=== PATIENT | female | born 1990 | race Caucasian/White ===

== ENCOUNTER 2017-08-19 15:43 | Inpatient (IN) | payer MEDICAID, OTHER ==
[~2017-08-19] VITALS: Ht 160 cm; Wt 81.6 kg
[2017-08-19] MEDS ORDERED: ONDANSETRON HCL 4 MG/2 ML VIAL ONE ×2 (16:24→18:31)
[2017-08-19] MEDS ORDERED: SODIUM CHLORIDE 0.9% 1000ML 1,000 ML IV ONE (16:25)
[2017-08-19] MEDS ORDERED: DICYCLOMINE HCL 10 MG/ML 2ML AMP IM ONE (16:25)
[2017-08-19 16:26] LABS: BASOPHILS % (AUTO) 0.4 % (0.0-5.0); EOSINOPHILS % (AUTO) 0.2 % (0.0-8.0); HEMATOCRIT 32.7 % (36-48); LYMPHOCYTES % (AUTO) 13.3 % (21.0-51.0); MEAN CORPUSCULAR HEMOGLOBIN 19.4 pg (27.0-33.0); MEAN CORPUSCULAR HGB CONC 31.4 g/dL (32.0-36.0); MEAN CORPUSCULAR VOLUME 61.8 fL (79-99); MONOCYTES % (AUTO) 5.8 % (3.0-13.0); NEUTROPHILS % (AUTO) 80.3 % (40.0-77.0); PLATELET COUNT (AUTO) 321 K/uL (130-400); RED CELL DISTRIBUTION WIDTH 17.3 % (11.0-15.5); WHITE BLOOD COUNT (AUTO) 8.2 K/uL (4.8-10.8)
[2017-08-19 16:27] LABS: APPEARANCE,URINE SL CLOUDY (CLEAR); BILIRUBIN,URINE MODERATE (NEGATIVE); COLOR,URINE YELLOW (YELLOW); GLUCOSE, URINE (UA) NEGATIVE (NEGATIVE); KETONES,URINE 15 mg/dL (NEGATIVE); LEUKOCYTE ESTERASE ,URINE TRACE (NEGATIVE); NITRATE,URINE NEGATIVE (NEGATIVE); OCCULT BLOOD,URINE NEGATIVE (NEGATIVE); PROTEIN,URINE NEGATIVE (NEGATIVE); UROBILINOGEN,URINE 0.2 mg/dL (0.2-1.0)
[2017-08-19 16:39] LABS: CREATININE 0.7 mg/dL (0.5-1.5); POTASSIUM 3.5 mmol/L (3.5-5.1)
[2017-08-19 16:49] LABS: ALBUMIN 4.1 g/dL (3.5-5.0); BILIRUBIN,TOTAL 2.5 mg/dL (0.2-1.0); TOTAL PROTEIN, SERUM 8.4 g/dL (6.0-8.3)
[2017-08-19 17:02] LABS: BACTERIA,URINE Few /HPF (None Seen); RBC,URINE 0-1 /HPF (0-1); SQUAMOUS EPITHELIAL CELL,UR Moderate /LPF (0-2)
[2017-08-19 17:03] LABS: MUCUS,URINE Few LPF (None Seen)
[2017-08-19] MEDS ORDERED: MORPHINE SULFATE 8 MG/ML VIAL ONE (18:32)
[2017-08-19 23:35] VITALS: BP 110/58
[2017-08-19] MEDS ORDERED: PREN1TAB89 PO (23:44)
[2017-08-20] MEDS: SODIUM CHLORIDE 0.9% 1000ML 1,000 ML IV SCH ×3 (00:06→23:27)
[2017-08-20 03:27] VITALS: BP 91/54
[2017-08-20] MEDS: MORPHINE SULFATE 2 MG/ML 1ML SYG IV PRN (04:54)
[2017-08-20 05:39] LABS: BASOPHILS % (AUTO) 0.5 % (0.0-5.0); EOSINOPHILS % (AUTO) 0.4 % (0.0-8.0); HEMATOCRIT 28.6 % (36-48); LYMPHOCYTES % (AUTO) 19.5 % (21.0-51.0); MEAN CORPUSCULAR HEMOGLOBIN 19.4 pg (27.0-33.0); MEAN CORPUSCULAR HGB CONC 31.5 g/dL (32.0-36.0); MEAN CORPUSCULAR VOLUME 61.7 fL (79-99); MONOCYTES % (AUTO) 7.8 % (3.0-13.0); NEUTROPHILS % (AUTO) 71.8 % (40.0-77.0); PLATELET COUNT (AUTO) 278 K/uL (130-400); RED BLOOD CELL COUNT(AUTO) 4.63 MIL/uL (4.00-5.50); RED CELL DISTRIBUTION WIDTH 17.5 % (11.0-15.5); WHITE BLOOD COUNT (AUTO) 7.1 K/uL (4.8-10.8)
[2017-08-20 05:45] LABS: CREATININE 0.7 mg/dL (0.5-1.5); POTASSIUM 3.5 mmol/L (3.5-5.1)
[2017-08-20 07:42] VITALS: BP 97/53
[2017-08-20] MEDS: FAMOTIDINE 20MG TAB 20 MG TAB PO SCH (08:49)
[2017-08-20 11:40] VITALS: BP 98/59
[2017-08-20 15:49] VITALS: BP 102/59
[2017-08-20 19:34] VITALS: BP 111/65
[2017-08-20] MEDS ORDERED: ACETAMINOPHEN 650 MG SUPPOSITORY RC PRN (20:45)
[2017-08-20] MEDS ORDERED: DiphenhydrAMINE HCL 50 MG/ML VIAL IV PRN (20:45)
[2017-08-20] MEDS ORDERED: ACETAMINOPHEN 325 MG TAB PO ONE (20:45)
[2017-08-20 23:23] VITALS: BP 109/65
[2017-08-21 03:17] VITALS: BP 102/60
[2017-08-21 05:54] LABS: HEMATOCRIT 28.4 % (36-48); MEAN CORPUSCULAR HEMOGLOBIN 20.1 pg (27.0-33.0); MEAN CORPUSCULAR HGB CONC 32.4 g/dL (32.0-36.0); MEAN CORPUSCULAR VOLUME 62.1 fL (79-99); PLATELET COUNT (AUTO) 294 K/uL (130-400); RED BLOOD CELL COUNT(AUTO) 4.57 MIL/uL (4.00-5.50); RED CELL DISTRIBUTION WIDTH 17.7 % (11.0-15.5); WHITE BLOOD COUNT (AUTO) 6.4 K/uL (4.8-10.8)
[2017-08-21 06:05] LABS: CREATININE 0.6 mg/dL (0.5-1.5); POTASSIUM 3.9 mmol/L (3.5-5.1)
[2017-08-21 07:59] VITALS: BP 98/50
[2017-08-21] MEDS: MORPHINE SULFATE 2 MG/ML 1ML SYG IV PRN (08:13)
[2017-08-21] MEDS: FAMOTIDINE 20MG TAB 20 MG TAB PO SCH (09:04)
[2017-08-21] MEDS: SODIUM CHLORIDE 0.9% 1000ML 1,000 ML IV SCH ×2 (10:21→13:58)
[2017-08-21 12:07] VITALS: BP 125/73
[2017-08-21 15:57] VITALS: BP 124/72
== END 2017-08-21 16:45 | disposition home or self-care (01) | DRG 781 ==
LOC: EDH 15:43 → EDHIP 15:44 → WSH 23:25
PROVIDERS: ADMIT Family Medicine; ATTEND Family Medicine
DX: O26.611 Liver and biliary tract disorders in pregnancy, first trimester (principal); K80.20 Calculus of gallbladder without cholecystitis without obstruction; O34.29 Maternal care due to uterine scar from other previous surgery; Z3A.01 Less than 8 weeks gestation of pregnancy; Z87.81 Personal history of (healed) traumatic fracture
CPT/HCPCS: 36415; 74181; 76705; 76817; 80048; 80053; 81001; 82150; 83690; 84702; 85025; 85027; J0500; J2270; J2405; J7030; J7120

== ENCOUNTER 2017-08-31 08:14 | Emergency (ER) | payer MEDICAID, OTHER ==
[~2017-08-31 08:14] MED LIST: PREN1TAB89 PO
[2017-08-31 08:48] LABS: APPEARANCE,URINE CLEAR (CLEAR); BILIRUBIN,URINE NEGATIVE (NEGATIVE); COLOR,URINE YELLOW (YELLOW); GLUCOSE, URINE (UA) NEGATIVE (NEGATIVE); KETONES,URINE NEGATIVE (NEGATIVE); LEUKOCYTE ESTERASE ,URINE NEGATIVE (NEGATIVE); NITRATE,URINE NEGATIVE (NEGATIVE); OCCULT BLOOD,URINE LARGE (NEGATIVE); PH,URINE 7.5 (5.0-8.0); PROTEIN,URINE NEGATIVE (NEGATIVE); UROBILINOGEN,URINE 0.2 mg/dL (0.2-1.0)
[2017-08-31 08:54] LABS: BACTERIA,URINE Rare /HPF (None Seen); WBC,URINE None Seen /HPF (0-1); YEAST,URINE BUDDING Few /HPF (None Seen)
== END 2017-08-31 12:48 | disposition home or self-care (01) ==
LOC: EDH 08:14
DX: O20.9 Hemorrhage in early pregnancy, unspecified (principal); Z3A.01 Less than 8 weeks gestation of pregnancy
CPT/HCPCS: 36415; 76801; 81001; 84702

== ENCOUNTER 2018-04-21 10:30 | Inpatient (IN) | payer MEDICAID ==
[~2018-04-21] VITALS: Ht 160 cm; Wt 86.6 kg
[2018-04-21 11:42] LABS: HEMATOCRIT 30.2 % (36-48); MEAN CORPUSCULAR HEMOGLOBIN 20.4 pg (27.0-33.0); MEAN CORPUSCULAR HGB CONC 31.9 g/dL (32.0-36.0); MEAN CORPUSCULAR VOLUME 63.9 fL (79-99); PLATELET COUNT (AUTO) 251 K/uL (130-400); RED BLOOD CELL COUNT(AUTO) 4.72 MIL/uL (4.00-5.50); RED CELL DISTRIBUTION WIDTH 16.5 % (11.0-15.5); WHITE BLOOD COUNT (AUTO) 12.9 K/uL (4.8-10.8)
[2018-04-22] VITALS (17 sets, daily range): BP systolic 96–118; BP diastolic 53–69
[2018-04-22] MEDS ORDERED: CEFAZOLIN SODIUM 1 GM VIAL IVP PRN (05:30)
[2018-04-22] MEDS ORDERED: CEFAZOLIN SODIUM 1 GM VIAL ONE (05:42)
[2018-04-22] MEDS ORDERED: DURAMORPH PF1 MG/ML 10ML AMP IV ONE (06:43)
[2018-04-22] MEDS ORDERED: DEXAMETHASONE SOD PHOSPHATE 10MG/ML 1ML VIAL ONE (07:12)
[2018-04-22] MEDS ORDERED: ONDANSETRON HCL 4 MG/2 ML VIAL ONE (07:12)
[2018-04-22 07:27] LABS: HEPATITIS Bs ANTIGEN SCREEN P Negative (Negative)
[2018-04-22] MEDS ORDERED: SODIUM CHLORIDE 0.9% 10 ML VIAL IVP PRN (09:30)
[2018-04-22] MEDS ORDERED: PROMETHAZINE HCL 25 MG/ML 1ML AMPULE IM PRN ×2 (09:30→12:00)
[2018-04-22] MEDS ORDERED: MEPERIDINE-PF 75 MG/ML SYG IM PRN (09:30)
[2018-04-22] MEDS ORDERED: OXYTOCIN 10 USP UNITS/ML ONE (09:32)
[2018-04-22] MEDS ORDERED: ONDANSETRON HCL MDV 20ML 2 MG/ML VIAL ONE (09:55)
[2018-04-22] MEDS ORDERED: MORPHINE SULFATE 2 MG/ML 1ML SYG IVP PRN (12:00)
[2018-04-22] MEDS ORDERED: METOCLOPRAMIDE 10 MG/2 ML VIAL IVP PRN (12:00)
[2018-04-22] MEDS ORDERED: DiphenhydrAMINE HCL 50 MG/ML VIAL IVP PRN (12:00)
[2018-04-22] MEDS ORDERED: EPHEDRINE SULFATE 50 MG/ML AMPULE IVP PRN (12:00)
[2018-04-22] MEDS ORDERED: ONDANSETRON HCL 4 MG/2 ML VIAL IVP PRN ×2 (12:00)
[2018-04-22] MEDS ORDERED: NALOXONE HCL 0.4 MG/1 ML ML IVP PRN ×2 (12:00)
[2018-04-22] MEDS ORDERED: ONDANSETRON HCL 4 MG/2 ML 8 MG in SODIUM CHLORIDE 0.9% 50 ML IVP NR (12:00)
[2018-04-22] MEDS ORDERED: HYDROCODONE/ACETAMINOPHEN 5/325 MG TAB PO PRN (12:00)
[2018-04-22] MEDS: HYDROCODONE/ACETAMINOPHEN 5/325 MG TAB PO PRN ×2 (16:07→21:08)
[2018-04-22] MEDS: DEXTROSE 5 %-0.45 % NACL 1,000 ML IV PRN ×2 (16:08→21:08)
[2018-04-23 00:22] VITALS: BP 91/57
[2018-04-23] MEDS: DEXTROSE 5 %-0.45 % NACL 1,000 ML IV PRN (03:43)
[2018-04-23] MEDS: HYDROCODONE/ACETAMINOPHEN 5/325 MG TAB PO PRN ×2 (03:53→19:01)
[2018-04-23 04:55] VITALS: BP 97/61
[2018-04-23] MEDS ORDERED: LANOLIN 30GM OINTMENT TP PRN (05:00)
[2018-04-23] MEDS ORDERED: ACETAMINOPHEN EXTRA STRENGTH 500 MG TABLET PO PRN (05:00)
[2018-04-23] MEDS ORDERED: HYDROCODONE/ACETAMINOPHEN 5/325 MG TAB PO PRN (05:00)
[2018-04-23] MEDS ORDERED: BISACODYL 10 MG SUPP.RECT RC PRN (05:00)
[2018-04-23 05:28] LABS: HEMATOCRIT 25.6 % (36-48); MEAN CORPUSCULAR HEMOGLOBIN 20.6 pg (27.0-33.0); MEAN CORPUSCULAR VOLUME 64.3 fL (79-99); PLATELET COUNT (AUTO) 195 K/uL (130-400); RED BLOOD CELL COUNT(AUTO) 3.99 MIL/uL (4.00-5.50); RED CELL DISTRIBUTION WIDTH 16.9 % (11.0-15.5); WHITE BLOOD COUNT (AUTO) 9.2 K/uL (4.8-10.8)
[2018-04-23 07:36] VITALS: BP 97/65
[2018-04-23] MEDS: DOCUSATE SODIUM 100 MG CAP PO SCH ×2 (08:54→21:02)
[2018-04-23] MEDS: SIMETHICONE 80 MG TAB.CHEW PO PRN ×2 (08:54→17:19)
[2018-04-23] MEDS: IBUPROFEN 600 MG TABLET PO PRN ×2 (08:55→17:19)
[2018-04-23] MEDS: ACETAMINOPHEN-CODEINE 300/30MG TAB PO PRN (09:58)
[2018-04-23 11:33] VITALS: BP 107/71
[2018-04-23 15:52] VITALS: BP 100/59
[2018-04-23 20:41] VITALS: BP 99/50
[2018-04-24 01:34] VITALS: BP 105/72
[2018-04-24] MEDS: ACETAMINOPHEN-CODEINE 300/30MG TAB PO PRN (03:26)
[2018-04-24 05:08] VITALS: BP 118/76
[2018-04-24 07:42] VITALS: BP 119/72
[2018-04-24] MEDS: DOCUSATE SODIUM 100 MG CAP PO SCH (08:40)
[2018-04-24] MEDS: SIMETHICONE 80 MG TAB.CHEW PO PRN (08:40)
[2018-04-24] MEDS: IBUPROFEN 600 MG TABLET PO PRN (08:44)
[2018-04-24 11:29] VITALS: BP 104/65
== END 2018-04-24 13:25 | disposition home or self-care (01) | DRG 540 ==
LOC: LDH 04-22 05:31 → WSH 04-22 08:55
PROVIDERS: ADMIT Obstetrics & Gynecology; ATTEND Obstetrics & Gynecology
PROC: 10D00Z1 Extraction of Products of Conception, Low, Open Approach (ICD-10-PCS; principal; 2018-04-22 07:00)
DX: O34.211 Maternal care for low transverse scar from previous cesarean delivery (principal); Z37.0 Single live birth; Z3A.39 39 weeks gestation of pregnancy; Z83.3 Family history of diabetes mellitus; Z80.1 Family history of malignant neoplasm of trachea, bronchus and lung; Z82.49 Family history of ischemic heart disease and other diseases of the circulatory system
CPT/HCPCS: 36415; 59510; 85027; 86592; 86850; 86900; 86901; 87340; A4344; A4450; A4606; J0690; J1100; J2274; J2405; J2590; J7120

== ENCOUNTER 2018-12-14 18:51 | Emergency (ER) | payer MEDICAID, OTHER ==
[2018-12-14 19:26] LABS: APPEARANCE,URINE Clear (CLEAR); BILIRUBIN,URINE Negative (NEGATIVE); COLOR,URINE Yellow (YELLOW); GLUCOSE, URINE (UA) Negative (NEGATIVE); KETONES,URINE 15 mg/dL (NEGATIVE); LEUKOCYTE ESTERASE ,URINE Negative (NEGATIVE); NITRATE,URINE Negative (NEGATIVE); OCCULT BLOOD,URINE Negative (NEGATIVE); PROTEIN,URINE Negative (NEGATIVE)
[2018-12-14 19:28] LABS: HCG,QUAL RESULT NEGATIVE (NEGATIVE)
[2018-12-14 19:31] LABS: CREATININE 0.7 mg/dL (0.5-1.5); POTASSIUM 3.9 mmol/L (3.5-5.1)
[2018-12-14 19:33] LABS: BASOPHILS % (AUTO) 0.4 % (0.0-5.0); EOSINOPHILS % (AUTO) 0.6 % (0.0-8.0); HEMATOCRIT 40.9 % (36-48); LYMPHOCYTES % (AUTO) 11.9 % (21.0-51.0); MEAN CORPUSCULAR HEMOGLOBIN 25.4 pg (27.0-33.0); MEAN CORPUSCULAR HGB CONC 33.2 g/dL (32.0-36.0); MEAN CORPUSCULAR VOLUME 76.4 fL (79-99); MONOCYTES % (AUTO) 4.6 % (3.0-13.0); NEUTROPHILS % (AUTO) 82.5 % (40.0-77.0); PLATELET COUNT (AUTO) 255 K/uL (130-400); RED BLOOD CELL COUNT(AUTO) 5.35 MIL/uL (4.00-5.50); RED CELL DISTRIBUTION WIDTH 13.7 % (11.0-15.5); WHITE BLOOD COUNT (AUTO) 10.8 K/uL (4.8-10.8)
[2018-12-14 19:45] LABS: ALBUMIN 4.4 g/dL (3.5-5.0); BILIRUBIN,TOTAL 0.5 mg/dL (0.2-1.0); THYROID STIMULATING HORMONE 6.92 uIU/mL (0.36-3.74); TOTAL PROTEIN, SERUM 8.5 g/dL (6.0-8.3)
[2018-12-14] MEDS ORDERED: SODIUM CHLORIDE 0.9% 1000ML 1,000 ML IV ONE (20:27)
[2018-12-14] MEDS ORDERED: ONDANSETRON HCL 4 MG/2 ML VIAL ONE (21:03)
== END 2018-12-14 22:42 | disposition home or self-care (01) ==
LOC: EDH 18:51
DX: E86.0 Dehydration (principal); R11.2 Nausea with vomiting, unspecified; R19.7 Diarrhea, unspecified; Z98.890 Other specified postprocedural states
CPT/HCPCS: 36415; 80053; 81003; 81025; 82550; 84443; 84484; 85025; 93005; 96361; 96374; 99285; J2405; J7030

== ENCOUNTER 2020-04-01 12:43 | Emergency (ER) | payer SELFPAY ==
[2020-04-01 13:04] LABS: BASOPHILS % (AUTO) 0.6 % (0.0-5.0); EOSINOPHILS % (AUTO) 0.3 % (0.0-8.0); HEMATOCRIT 37.2 % (36-48); LYMPHOCYTES % (AUTO) 15.4 % (21.0-51.0); MEAN CORPUSCULAR HEMOGLOBIN 23.2 pg (27.0-33.0); MEAN CORPUSCULAR HGB CONC 32.3 g/dL (32.0-36.0); MEAN CORPUSCULAR VOLUME 71.8 fL (79-99); MONOCYTES % (AUTO) 5.5 % (3.0-13.0); PLATELET COUNT (AUTO) 275 K/uL (130-400); RED BLOOD CELL COUNT(AUTO) 5.18 MIL/uL (4.00-5.50)
[2020-04-01 13:15] LABS: CREATININE 0.7 mg/dL (0.5-1.5); POTASSIUM 3.8 mmol/L (3.5-5.1)
[2020-04-01 13:19] LABS: ALBUMIN 4.4 g/dL (3.5-5.0); BILIRUBIN,TOTAL 0.4 mg/dL (0.2-1.0); TOTAL PROTEIN, SERUM 8.4 g/dL (6.0-8.3)
[2020-04-01] MEDS ORDERED: ONDANSETRON HCL 4 MG/2 ML VIAL ONE (13:23)
[2020-04-01] MEDS ORDERED: HYOSCYAMINE SULFATE 0.125 MG TAB.SUBL SL ONE (13:23)
[2020-04-01 13:35] LABS: APPEARANCE,URINE Clear (CLEAR); BILIRUBIN,URINE Negative (NEGATIVE); COLOR,URINE Yellow (YELLOW); GLUCOSE, URINE (UA) Negative (NEGATIVE); KETONES,URINE Negative (NEGATIVE); LEUKOCYTE ESTERASE ,URINE Negative (NEGATIVE); NITRATE,URINE Negative (NEGATIVE); OCCULT BLOOD,URINE Negative (NEGATIVE); PROTEIN,URINE Negative (NEGATIVE)
[2020-04-01 13:42] LABS: HCG,QUAL RESULT NEGATIVE (NEGATIVE)
[2020-04-01] MEDS ORDERED: KETOROLAC TROMETHAMINE 30MG/ML ONE (14:14)
== END 2020-04-01 15:23 | disposition home or self-care (01) ==
LOC: EDH 12:43
DX: R10.13 Epigastric pain (principal)
CPT/HCPCS: 36415; 80053; 81003; 81025; 83690; 85025; 96374; 96375; 99284; J1885; J2405

== ENCOUNTER 2021-07-10 10:44 | Emergency (ER) | payer MEDICAID ==
[~2021-07-10] VITALS: Ht 160 cm; Wt 86.2 kg
[2021-07-10] MEDS ORDERED: MORPHINE 4 MG SYG ONE (11:30)
[2021-07-10] MEDS ORDERED: ONDANSETRON 4MG INJ ONE (11:30)
[2021-07-10] MEDS ORDERED: ONDANSETRON 4MG INJ IVP SCH (11:30)
[2021-07-10] MEDS ORDERED: 0.9%NACL 1000ML 1,000 ML IV SCH (11:30)
[2021-07-10] MEDS ORDERED: MORPHINE 4 MG SYG IVP SCH (11:30)
[2021-07-10] MEDS ORDERED: 0.9%NACL 1000ML 1,000 ML IV ONE (11:31)
[2021-07-10 11:34] LABS: BASOPHILS % (AUTO) 0.4 % (0.0-5.0); EOSINOPHILS % (AUTO) 0.5 % (0.0-8.0); HEMATOCRIT 32.7 % (36-48); LYMPHOCYTES % (AUTO) 13.8 % (21.0-51.0); MEAN CORPUSCULAR HGB CONC 30.3 g/dL (32.0-36.0); MEAN CORPUSCULAR VOLUME 65.9 fL (79-99); MONOCYTES % (AUTO) 4.5 % (3.0-13.0); NEUTROPHILS % (AUTO) 80.5 % (40.0-77.0); PLATELET COUNT (AUTO) 254 K/uL (130-400); RED BLOOD CELL COUNT(AUTO) 4.96 MIL/uL (4.00-5.50); RED CELL DISTRIBUTION WIDTH 15.6 % (11.0-15.5); WHITE BLOOD COUNT (AUTO) 9.5 K/uL (4.8-10.8)
[2021-07-10 11:37] LABS: BILIRUBIN,URINE Negative (NEGATIVE); COLOR,URINE Yellow (YELLOW); GLUCOSE, URINE (UA) Negative (NEGATIVE); HCG,QUAL RESULT POSITIVE (NEGATIVE); KETONES,URINE 15 mg/dL (NEGATIVE); LEUKOCYTE ESTERASE ,URINE Negative (NEGATIVE); NITRATE,URINE Negative (NEGATIVE); OCCULT BLOOD,URINE Negative (NEGATIVE); PH,URINE 6.5 (5.0-8.0); PROTEIN,URINE Negative (NEGATIVE)
[2021-07-10 11:41] LABS: APPEARANCE,URINE SLIGHTLY CLOUDY (CLEAR)
[2021-07-10 11:41] LABS: CREATININE 0.5 mg/dL (0.5-1.5); POTASSIUM 3.2 mmol/L (3.5-5.1)
[2021-07-10 12:03] LABS: ALBUMIN 3.6 g/dL (3.5-5.0); BILIRUBIN,TOTAL 0.3 mg/dL (0.2-1.0); TOTAL PROTEIN, SERUM 8.1 g/dL (6.0-8.3)
[2021-07-10] MEDS ORDERED: ACET1TAB25 PO (13:57)
[2021-07-10 14:14] VITALS: BP 126/79
[2021-07-10] MEDS ORDERED: MORPHINE 4 MG SYG IV ONE (14:30)
== END 2021-07-10 14:33 | disposition home or self-care (01) ==
LOC: EDH 10:44
DX: O26.611 Liver and biliary tract disorders in pregnancy, first trimester (principal); K80.50 Calculus of bile duct without cholangitis or cholecystitis without obstruction; Z3A.09 9 weeks gestation of pregnancy; Z79.899 Other long term (current) drug therapy
CPT/HCPCS: 36415; 76705; 76801; 80053; 81003; 81025; 82150; 83690; 85025; 96361; 96374; 96375; 96376; 99284; J2270 ×2; J2405; J7030